=== PATIENT | male | born 1955 | race Caucasian/White ===

== ENCOUNTER 2019-12-27 13:56 | Emergency (ER) | payer OTHER ==
--- NOTE | 2019-12-27 13:59 | PDOC ---
Rapid Medical Evaluation Time Seen by Provider: 12/27/19 13:58 Medical Evaluation: 12/27/19 13:59 I have performed a brief in-person evaluation of this patient. The patient presents with a chief complaint of:BG in the 500s today w/ lethargy. Noncompliant w/ insulin per daughter Pertinent physical exam findings:stable I have ordered the following:labs The patient will proceed to the ED for further evaluation. Discharge Disposition - Diagnosis Hyperglycemia - Referrals - Patient Instructions - Post Discharge Activity
[2019-12-27] MEDS ORDERED: SODIUM CHLORIDE 0.9% 500 ML INFUS.BAG IV ONE (14:24)
[2019-12-27 16:26] LABS: BASO % 0.5 % (0-2.0); EOS % 0.1 % (0-4.5); HEMATOCRIT 38.6 % (35.4-49); HEMOGLOBIN 12.5 GM/dL (11.7-16.9); MCH 25.7 pg (25.7-33.7); MCHC 32.3 g/dl (32.0-35.9); MEAN CELL VOLUME 79.6 fl (80-96); MEAN PLT VOLUME 10.9 fl (7.5-11.1); NEUT % 86.4 % (42.8-82.8); PLATELET COUNT 238 K/MM3 (134-434); RBC 4.85 M/mm3 (4.00-5.60); RDW 14.3 % (11.9-15.9); WHITE BLOOD COUNT 8.5 K/mm3 (4.0-10.0)
[2019-12-27 16:56] LABS: ALBUMIN 2.4 g/dl (3.4-5.0); ALK PHOS 122 U/L (45-117); ANION GAP 16 MMOL/L (8-16); BILIRUBIN,TOTAL 0.6 mg/dL (0.2-1); BLOOD UREA NITROGEN 59.2 mg/dL (7-18); CALCIUM 8.8 mg/dL (8.5-10.1); CHLORIDE 90 mmol/L (98-107); CO2 21 mmol/L (21-32); CREATININE 3.8 mg/dL (0.55-1.3); SGOT/AST 21 U/L (15-37); SGPT/ALT 16 U/L (13-61); SODIUM 126 mmol/L (136-145)
--- NOTE | 2019-12-27 17:06 | PDOC ---
Documentation entered by Leslie Kruse SCRIBE, acting as scribe for Bucky Willett MD. Bucky Willett MD: This documentation has been prepared by the Uriah mcmahon Adrianna, SCRIBE, under my direction and personally reviewed by me in its entirety. I confirm that the documentation accurately reflects all work, treatment, procedures, and medical decision making performed by me. Attending Attestation - Resident Resident Name: North Perez - ED Attending Attestation I have performed the following: I have examined & evaluated the patient, The case was reviewed & discussed with the resident, I agree w/resident's findings & plan, Exceptions are as noted - HPI HPI: The patient is a 64 year old male, with a significant PMH of IDDM, HTN, HLD, who presents with elevated blood glucose. Patients BG was in the 500s today. His daughter notes he has not had insulin for the past 3 days (traveling & visiting family), but took a dose last night and one this morning. He endorses lethargy, but otherwise denies any other complaints. Allergies: NKA, NKDA - Physicial Exam PE: Agree with resident exam - Medical Decision Making 12/27/19 17:11 64 M with hyperglycemia 2/2 med noncompliance. Will check labs, r/o DKA. - Labs - IVF, insulin PRN Discharge - Discharge Information Problems reviewed: Yes Clinical Impression/Diagnosis: Hyperglycemia, DKA (diabetic ketoacidoses) Condition: Improved - Follow up/Referral - Patient Discharge Instructions - Post Discharge Activity
[2019-12-27] MEDS ORDERED: SODIUM CHLORIDE 1,000 ML IV STA (17:26)
[2019-12-27] MEDS ORDERED: INSULIN REGULAR HUMAN 100 UNITS/ML *VIAL IVPUSH ONE (17:26)
[2019-12-27 17:37] LABS: GLUCOSE,RANDOM 423 mg/dL (74-106)
--- NOTE | 2019-12-27 17:42 | PDOC ---
History of Present Illness - General Chief Complaint: Blood Sugar Problem Stated Complaint: BLOOD SUGAR PROBLEM Time Seen by Provider: 12/27/19 13:58 History Source: Patient Exam Limitations: No Limitations - History of Present Illness Initial Comments: 12/27/19 17:36 64 yo male pmh HTN and IDDM presents to the ED for elevated glucose. Pt states he lives in [place], visiting family in the [place] for the last 3 days. Patient forgot to bring his insulin, only took last nights dose and this mornings dose (long acting insulin, does not know the name of it). Pt reports increasing blood sugar, over 600 at home yesterday, otherwise has no medical complaints. Denies CP, SOB, abdominal pain, F/C/N/V, changes in bowel or bladder habits. Past History - Medical History Allergies/Adverse Reactions: Allergies Allergy/AdvReac Type Severity Reaction Status Date / Time No Known Allergies Allergy Verified 12/27/19 14:04 Home Medications: Ambulatory Orders Unobtainable 12/27/19 COPD: No Diabetes: Yes (IDDM) HTN: Yes - Psycho-Social/Smoking History Smoking History: Never smoked - Substance Abuse Hx (Audit-C & DAST Scrn) How often the patient has a drink containing alcohol: Never Score: In Men: 4 or > Positive; In Women: 3 or > Positive: 0 Screen Result (Pos requires Nsg. Audit-10AR): Negative Review of Systems - Review of Systems Constitutional: Yes: Symptoms Reported HEENTM: Yes: Symptoms Reported Respiratory: Yes: Symptoms reported Cardiac (ROS): Yes: Symptoms Reported ABD/GI: Yes: Symptoms Reported : Yes: Symptoms Reported Musculoskeletal: Yes: Symptoms Reported Integumentary: Yes: Symptoms Reported Neurological: Yes: Symptoms reported *Physical Exam - Vital Signs Last Vital Signs Temp Pulse Resp BP Pulse Ox 98 F 65 18 107/53 L 98 12/27/19 14:02 12/27/19 14:02 12/27/19 14:02 12/27/19 14:02 12/27/19 14:02 - Physical Exam General Appearance: Yes: Nourished, Appropriately Dressed. No: Apparent Distress HEENT: positive: EOMI Neck: positive: Supple. negative: Carotid bruit Respiratory/Chest: positive: Lungs Clear, Normal Breath Sounds. negative: Respiratory Distress, Accessory Muscle Use, Rapid RR, Crackles, Rales, Rhonchi, Stridor, Wheezing Cardiovascular: positive: Regular Rhythm, Regular Rate, S1, S2. negative: Edema, JVD, Murmur Vascular Pulses: Dorsalis-Pedis (R): 4+, Doralis-Pedis (L): 4+ Gastrointestinal/Abdominal: positive: Flat, Soft. negative: Pulsatile Mass, Protuberent, Distended, Guarding, Rebound, Tenderness Musculoskeletal: negative: CVA Tenderness Extremity: positive: Normal Capillary Refill, Normal Inspection, Normal Range of Motion Integumentary: positive: Normal Color, Dry, Warm Neurologic: positive: Fully Oriented, Alert, Normal Mood/Affect, Normal Response ED Treatment Course - LABORATORY CBC & Chemistry Diagram: 12/27/19 15:45 12/27/19 15:15 - ADDITIONAL ORDERS Additional order review: Laboratory Results 12/27/19 12/27/19 12/27/19 15:17 15:15 15:15 Sodium 126 L Potassium 5.0 Chloride 90 L Carbon Dioxide 21 Anion Gap 16 BUN 59.2 H Creatinine 3.8 H Est GFR (CKD-EPI)AfAm 18.02 Est GFR (CKD-EPI)NonAf 15.55 POC Glucometer 420 Calcium 8.8 Total Bilirubin 0.6 AST 21 ALT 16 Alkaline Phosphatase 122 H Creatine Kinase 195 Creatine Kinase Index 1.0 CK-MB (CK-2) 2.1 Troponin I < 0.02 Total Protein 7.0 Albumin 2.4 L Beta-Hydroxybutyrate 11.5 H 12/27/19 12/27/19 15:45 15:17 RBC 4.85 MCV 79.6 L MCHC 32.3 RDW 14.3 MPV 10.9 Neutrophils % 86.4 H Lymphocytes % 7.0 L Monocytes % 6.0 Eosinophils % 0.1 Basophils % 0.5 POC Glucometer 420 - Medications Given in the ED: ED Medications Discontinued Medications Generic Name Dose Route Start Last Admin Trade Name Freq PRN Reason Stop Dose Admin Sodium Chloride 1,000 ml 12/27/19 14:24 12/27/19 15:46 Normal Saline - IV 12/27/19 14:25 1,000 ml ONCE ONE Administration Medical Decision Making - Medical Decision Making 12/27/19 17:59 64 yo male pmh HTN and IDDM presents to the ED for elevated glucose. Pt states he lives in [place], visiting family in the [place] for the last 3 days. Patient forgot to bring his insulin, only took last nights dose and this mornings dose (long acting insulin, does not know the name of it). Pt reports increasing blood sugar, over 600 at home yesterday, otherwise has no medical complaints. Denies CP, SOB, abdominal pain, F/C/N/V, changes in bowel or bladder habits. vitals stable Due to elevated BS, DKS suspected, labs sent and fluids started Labs show BS 423, beta HB 11.5, anion gap 16 Creatin noted 3.8 and Na corrected 134, no prior labs or notes to compare ordered 2nd 1000 ml NS Pt admitted for DKA Discharge - Discharge Information Problems reviewed: Yes Clinical Impression/Diagnosis: Hyperglycemia, DKA (diabetic ketoacidoses) - Admission Yes - Follow up/Referral - Patient Discharge Instructions - Post Discharge Activity
[2019-12-27] MEDS ORDERED: INSULIN REGULAR HUMAN 100 UNITS/ML *VIAL ONE (18:13)
[2019-12-27] MEDS ORDERED: INSULIN (LEVEMIR) 100 UNITS/ML UNITS SQ ONE ×3 (18:32→20:26)
[2019-12-27 18:37] LABS: VENOUS BASE EXCESS -4.2 mmol/L (-2-2); VENOUS O2 SATURATION 56.2 % (70-80); VENOUS PCO2 50.6 mmHg (38-52); VENOUS PH 7.275 (7.310-7.410)
--- NOTE | 2019-12-27 18:50 | HP ---
CHIEF COMPLAINT: elevated blood sugar PCP:Sees doctors in [facility] HISTORY OF PRESENT ILLNESS: Patient is a 64 year old male with past medical history of insulin-dependent DM, HTN, HLD, CKD, presented to the ED after noting BGMs to be >500 at home today. Patient is from [place], and came here to visit family. Patient forgot his insulin, and has not been taking it the past 3 days. He takes Insulin 20u in the morning and 20u at night. After checking his BGM to be at the 600s, patient was able to get Insulin and took it last night and this morning. Glucose remained to be elevated and so they came to the ED. Patient denies any fevers, chills ,headache, dizziness, chest pain, SOB, abdominal pain, diarrhea, urinary symptoms. ER course was notable for: (1)Insulin regular 5 units given (2)Na 126, Cl 90, HCO3 21, Glu 423, Anion gap 15 (corrected), Beta hydroxybutyrate 11.5 (3)BUN/Cr 59/3.8 Recent Travel:comes from [place] PAST MEDICAL HISTORY: DM HTN HLD PAST SURGICAL HISTORY: None Social History: Smoking:denies Alcohol:denies Drugs: denies Allergies No Known Allergies Allergy (Verified 12/27/19 14:04) HOME MEDICATIONS: Home Medications Medication Instructions Recorded Unobtainable 12/27/19 REVIEW OF SYSTEMS CONSTITUTIONAL: Absent: fever, chills, diaphoresis, generalized weakness, malaise, loss of appetite, weight change HEENT: Absent: rhinorrhea, nasal congestion, throat pain, throat swelling, difficulty swallowing, mouth swelling, ear pain, eye pain, visual changes CARDIOVASCULAR: Absent: chest pain, syncope, palpitations, irregular heart rate, lightheadedness, peripheral edema RESPIRATORY: Absent: cough, shortness of breath, dyspnea with exertion, orthopnea, wheezing, stridor, hemoptysis GASTROINTESTINAL: Absent: abdominal pain, abdominal distension, nausea, vomiting, diarrhea, constipation, melena, hematochezia GENITOURINARY: Absent: dysuria, frequency, urgency, hesitancy, hematuria, flank pain, genital pain MUSCULOSKELETAL: Absent: myalgia, arthralgia, joint swelling, back pain, neck pain SKIN: Absent: rash, itching, pallor HEMATOLOGIC/IMMUNOLOGIC: Absent: easy bleeding, easy bruising, lymphadenopathy, frequent infections ENDOCRINE: Absent: unexplained weight gain, unexplained weight loss, heat intolerance, cold intolerance NEUROLOGIC: Absent: headache, focal weakness or paresthesias, dizziness, unsteady gait, seizure, mental status changes, bladder or bowel incontinence PSYCHIATRIC: Absent: anxiety, depression, suicidal or homicidal ideation, hallucinations. PHYSICAL EXAMINATION Vital Signs - 24 hr 12/27/19 14:02 Temperature 98 F Pulse Rate 65 Respiratory 18 Rate Blood Pressure 107/53 L O2 Sat by Pulse 98 Oximetry (%) GENERAL: Awake, alert, and fully oriented, in no acute distress. HEAD: Normal with no signs of trauma. EYES: PERRLA, EOMI, sclera anicteric, conjunctiva clear. EARS, NOSE, THROAT: Dry mucous membranes. NECK: Normal range of motion, supple LUNGS: Breath sounds equal, clear to auscultation bilaterally. HEART: Regular rate and rhythm, normal S1 and S2 ABDOMEN: Soft, nontender, not distended, normoactive bowel sounds MUSCULOSKELETAL: Normal range of motion at all joints. LOWER EXTREMITIES: 2+ pulses, warm, well-perfused. No peripheral edema. NEUROLOGICAL: Cranial nerves II-XII intact. Normal speech PSYCHIATRIC: Cooperative. Good eye contact. SKIN: Warm, dry, normal turgor Laboratory Results - last 24 hr 12/27/19 12/27/19 12/27/19 15:15 15:15 15:17 WBC RBC Hgb Hct MCV MCH MCHC RDW Plt Count MPV Absolute Neuts (auto) Neutrophils % Lymphocytes % Monocytes % Eosinophils % Basophils % Nucleated RBC % Sodium 126 L Potassium 5.0 Chloride 90 L Carbon Dioxide 21 Anion Gap 16 BUN 59.2 H Creatinine 3.8 H Est GFR (CKD-EPI)AfAm 18.02 Est GFR (CKD-EPI)NonAf 15.55 POC Glucometer 420 Random Glucose 423 H* Calcium 8.8 Total Bilirubin 0.6 AST 21 ALT 16 Alkaline Phosphatase 122 H Creatine Kinase 195 Creatine Kinase Index 1.0 CK-MB (CK-2) 2.1 Troponin I < 0.02 Total Protein 7.0 Albumin 2.4 L Beta-Hydroxybutyrate 11.5 H 12/27/19 15:45 WBC 8.5 RBC 4.85 Hgb 12.5 Hct 38.6 MCV 79.6 L MCH 25.7 MCHC 32.3 RDW 14.3 Plt Count 238 MPV 10.9 Absolute Neuts (auto) 7.3 Neutrophils % 86.4 H Lymphocytes % 7.0 L Monocytes % 6.0 Eosinophils % 0.1 Basophils % 0.5 Nucleated RBC % 0 Sodium Potassium Chloride Carbon Dioxide Anion Gap BUN Creatinine Est GFR (CKD-EPI)AfAm Est GFR (CKD-EPI)NonAf POC Glucometer Random Glucose Calcium Total Bilirubin AST ALT Alkaline Phosphatase Creatine Kinase Creatine Kinase Index CK-MB (CK-2) Troponin I Total Protein Albumin Beta-Hydroxybutyrate ASSESSMENT/PLAN: Patient is a 64 year old male with past medical history of insulin-dependent DM, HTN, HLD, CKD, presented to the ED after noting BGMs to be >500 at home today. #Hyperglycemia, T2DM -minimally elevated anion gap, elevated B-hydroxybutyrate, less likely DKA since bicarb since normal -will order lactic acid (fluids already given) -BGM q2h -BMP q6h -Insulin slidiing scale implemented -on Lantus 20u bid at home -will resume Lantus 10u bid, with ISS and adjust as needed #JORDYN vs CKD -unclear baseline, but patient reported he has hx of CKD -will hold Losartan for now -on IVF -Renal/bladder US ordered -UA pending -will continue to monitor renal function #HTN -Continue home Amlodipine 10mg daily, Lopressor 100mg bid -Will hold losartan for now #HLD -Continue Lipitor 80mg sq daily #FEN -IV NS @100cc/hr -routine bmp monitoring -Diabetic diet #Prophylaxis -Heparin 5000u sq tid #Disposition -full code -tele obs Visit type - Emergency Visit Emergency Visit: Yes ED Registration Date: 12/27/19 Care time: The patient presented to the Emergency Department on the above date and was hospitalized for further evaluation of their emergent condition. - New Patient This patient is new to me today: Yes Date on this admission: 12/27/19 - Critical Care Critical Care patient: No ATTENDING PHYSICIAN STATEMENT I saw and evaluated the patient. I reviewed the resident's note and discussed the case with the resident. I agree with the resident's findings and plan as documented. SUBJECTIVE: OBJECTIVE: ASSESSMENT AND PLAN:
[2019-12-27 18:52] LABS: EPI CELLS 24 /uL (0-25.1); HYALINE CASTS 3 /uL (0-3.1); URINE APPEARANCE CLOUDY; URINE BACTERIA 4 /uL (0-1359); URINE BILIRUBIN NEGATIVE (NEGATIVE); URINE COLOR YELLOW; URINE GLUCOSE (UA) 3+ (NEGATIVE); URINE KETONE TRACE (NEGATIVE); URINE LEUK ESTERASE NEGATIVE (NEGATIVE); URINE NITRITE NEGATIVE (NEGATIVE); URINE PROTEIN 2+ (NEGATIVE); URINE RBC 7 /uL (0-23.9); URINE WBC 48 /uL (0-25.8)
[2019-12-27] MEDS ORDERED: ATORVASTATIN CA 80 MG TABLET (FP) PO SCH (22:00)
[2019-12-27] MEDS ORDERED: PATIENT'S OWN MEDICATION (NON-FORMULARY) (Insulin Glargine,Hum.Rec.Anlog [Lantus Solostar] SQ SCH (22:00)
[2019-12-27 22:24] LABS: BLOOD UREA NITROGEN 54.6 mg/dL (7-18); CALCIUM 8.3 mg/dL (8.5-10.1); CREATININE 3.2 mg/dL (0.55-1.3); POTASSIUM 4.6 mmol/L (3.5-5.1)
[2019-12-27] MEDS ORDERED: ATORVASTATIN CA 80 MG TABLET (FP) ONE (22:43)
[2019-12-27] MEDS ORDERED: HEPARIN NA (PORCINE) 5,000 UNITS/ML 1ML VIAL ONE (22:44)
[2019-12-27] MEDS: HEPARIN NA (PORCINE) 5,000 UNITS/ML 1ML VIAL SQ SCH (23:07)
[2019-12-28] MEDS: INSULIN SLIDING SCALE (NOVOLOG) 1 VIAL SQ SCH ×3 (01:10→11:54)
[2019-12-28] MEDS ORDERED: METOPROLOL TARTRATE 50 MG TABLET (FP) ONE (02:18)
[2019-12-28] MEDS: SODIUM CHLORIDE 1,000 ML IV SCH ×2 (02:35→09:27)
[2019-12-28] MEDS: METOPROLOL TARTRATE 50 MG TABLET (FP) PO SCH ×2 (02:35→09:26)
[2019-12-28 03:24] LABS: BLOOD UREA NITROGEN 51.9 mg/dL (7-18); CALCIUM 8.5 mg/dL (8.5-10.1); POTASSIUM 4.2 mmol/L (3.5-5.1)
[2019-12-28 04:12] VITALS: BMI 26.6
[2019-12-28] MEDS: HEPARIN NA (PORCINE) 5,000 UNITS/ML 1ML VIAL SQ SCH (06:20)
[2019-12-28] MEDS ORDERED: INSULIN (LEVEMIR) 100 UNITS/ML UNITS SQ SCH ×3 (07:00→07:36)
--- NOTE | 2019-12-28 07:59 | PN ---
Teaching Attending Note Name of Resident: Angle Davis ATTENDING PHYSICIAN STATEMENT I saw and evaluated the patient. I reviewed the resident's note and discussed the case with the resident. I agree with the resident's findings and plan as documented. SUBJECTIVE: Patient denies any complain OBJECTIVE: Vital Signs Temperature 97.6 F 12/28/19 04:07 Pulse Rate 83 12/28/19 04:07 Respiratory Rate 20 12/28/19 04:07 Blood Pressure 156/89 12/28/19 04:07 O2 Sat by Pulse Oximetry (%) 97 12/28/19 04:15 General: Elderly man, comfortable, not in distress HEENT mucous membranes moist, no anemia, no jaundice, PERRLA, no nystagmus Neck: No JVD, supple, no bruit, thyroid palpably normal, normal carotid pulsations. Chest: Nontender, clear to auscultation bilaterally/bilateral wheezing/bilateral basal rales. CVS: S1-S2 regular/irregular no murmur/gallop/rub Abdomen: Nondistended, soft, bowel sounds present. Extremities: No edema., No Calf tenderness, pulses present [employer]: AO X3 , no gross motor sensory deficit CBC, BMP 12/28/19 06:36 12/28/19 06:36 Hemoglobin A1c 13.6 Active Medications Amlodipine Besylate (Norvasc -) 10 mg PO DAILY [facility] Atorvastatin Calcium (Lipitor -) 80 mg PO HS [facility] Last Admin: 12/27/19 23:07 Dose: 80 mg Documented by: Heparin Sodium (Porcine) (Heparin -) 5,000 unit SQ TID [facility] Last Admin: 12/28/19 06:20 Dose: 5,000 unit Documented by: Sodium Chloride (Normal Saline -) 1,000 mls @ 100 mls/hr IV ASDIR [facility] Last Admin: 12/28/19 02:35 Dose: 100 mls/hr Documented by: Insulin Aspart (Novolog Vial Sliding Scale -) 1 vial SQ ACHS [facility]; Protocol Last Admin: 12/28/19 06:21 Dose: 2 unit Documented by: Insulin Detemir (Levemir Vial) 20 units SQ BID@0700,2200 [facility] Metoprolol Tartrate (Lopressor -) 100 mg PO BID [facility] Last Admin: 12/28/19 02:35 Dose: 100 mg Documented by: ASSESSMENT AND PLAN:64 year old male with past medical history of insulin- dependent T2DM, HTN, HLD, CKD4, presented to the ED after noting BGMs to be >500 at home today patient missed insulin for 2 days initial clinical presentation of DKA now closed AG Active issues: 1. Diabetes ketoacidosis: Patient is a known case of type 2 diabetes mellitus on insulin, noncompliant presented with severe hypoglycemia with elevated anion gap, beta hydroxybutyrate and random plasma glucose more than 600 ABG shows metabolic acidosis, consistent with DKA received IV hydration gap closed able to tolerate p.o. resumed home dose of insulin patient needs education for glycemic control as hemoglobin A1c 13.6 , patient is able to tolerate p.o. and gap is close last fingersticks are less than 200 can be discharged home. 2. JORDYN on CKD: Due to dehydration baseline patient has CKD stage III will hold lisinopril can be resumed as an outpatient once creatinine level is stabilized. 3. Hypertension: Well-controlled continue home medications 4. Dehydration resolved 5. Ultrasound shows chronic medical kidney disease, no hydronephrosis mild urinary retention will add Flomax 6. Hypercholesteremia:; Continue statin at outpatient dose
[2019-12-28 08:08] LABS: BASO % 0.5 % (0-2.0); EOS % 0.1 % (0-4.5); HEMATOCRIT 38.3 % (35.4-49); HEMOGLOBIN 12.2 GM/dL (11.7-16.9); LYMPH % 7.9 % (8-40); MCH 25.2 pg (25.7-33.7); MCHC 31.8 g/dl (32.0-35.9); MEAN CELL VOLUME 79.3 fl (80-96); MEAN PLT VOLUME 10.6 fl (7.5-11.1); MONO % 5.7 % (3.8-10.2); NEUT % 85.8 % (42.8-82.8); PLATELET COUNT 203 K/MM3 (134-434); RBC 4.83 M/mm3 (4.00-5.60); RDW 14.4 % (11.9-15.9); WHITE BLOOD COUNT 7.6 K/mm3 (4.0-10.0)
[2019-12-28 08:35] LABS: ALBUMIN 2.2 g/dl (3.4-5.0); BILIRUBIN,TOTAL 0.3 mg/dL (0.2-1); BLOOD UREA NITROGEN 48.4 mg/dL (7-18); CALCIUM 8.9 mg/dL (8.5-10.1); CREATININE 2.6 mg/dL (0.55-1.3); MAGNESIUM 2.4 mg/dL (1.8-2.4); PHOSPHOROUS 2.8 mg/dL (2.5-4.9); POTASSIUM 4.6 mmol/L (3.5-5.1); TOT PROT 6.8 g/dl (6.4-8.2)
[2019-12-28 08:51] VITALS: BP 140/81; PULSE 80; TEMP 98.9
[2019-12-28] MEDS ORDERED: amLODIPine BESYLATE 10 MG TABLET (FP) PO SCH (10:00)
--- NOTE | 2019-12-28 11:51 | EKG ---
Test Reason : Blood Pressure : / mmHG Vent. Rate : 095 BPM Atrial Rate : 095 BPM P-R Int : 124 ms QRS Dur : 092 ms QT Int : 332 ms P-R-T Axes : 052 005 000 degrees QTc Int : 417 ms NORMAL SINUS RHYTHM POSSIBLE LEFT ATRIAL ENLARGEMENT LEFT VENTRICULAR HYPERTROPHY WITH REPOLARIZATION ABNORMALITY POSSIBLE INFERIOR INFARCT , AGE UNDETERMINED ABNORMAL ECG NO PREVIOUS ECGS AVAILABLE Confirmed by KALEB JAMES MD ([id number]) on 12/28/2019 11:51:36 AM Referred By: Confirmed By:KALEB JAMES MD
--- NOTE | 2019-12-28 16:35 | DS ---
Physical Exam: SUBJECTIVE: Patient seen and examined. No acute events overnight OBJECTIVE: Vital Signs Temperature 98.9 F 12/28/19 08:50 Pulse Rate 80 12/28/19 08:50 Respiratory Rate 18 12/28/19 09:00 Blood Pressure 140/81 12/28/19 08:50 O2 Sat by Pulse Oximetry (%) 95 12/28/19 09:00 PHYSICAL EXAM GENERAL: Awake, alert, and fully oriented, in no acute distress. HEAD: Normal with no signs of trauma. EYES: PERRLA, EOMI, sclera anicteric, conjunctiva clear. EARS, NOSE, THROAT: Dry mucous membranes. NECK: Normal range of motion, supple LUNGS: Breath sounds equal, clear to auscultation bilaterally. HEART: Regular rate and rhythm, normal S1 and S2 ABDOMEN: Soft, nontender, not distended, normoactive bowel sounds MUSCULOSKELETAL: Normal range of motion at all joints. LOWER EXTREMITIES: 2+ pulses, warm, well-perfused. No peripheral edema. NEUROLOGICAL: Cranial nerves II-XII intact. Normal speech PSYCHIATRIC: Cooperative. Good eye contact. SKIN: Warm, dry, normal turgor LABS Laboratory Results - last 24 hr 12/27/19 12/27/19 12/27/19 15:15 15:15 15:45 WBC 8.5 RBC 4.85 Hgb 12.5 Hct 38.6 MCV 79.6 L MCH 25.7 MCHC 32.3 RDW 14.3 Plt Count 238 MPV 10.9 Absolute Neuts (auto) 7.3 Neutrophils % 86.4 H Lymphocytes % 7.0 L Monocytes % 6.0 Eosinophils % 0.1 Basophils % 0.5 Nucleated RBC % 0 VBG pH POC VBG pCO2 POC VBG pO2 VBG HCO3 VBG O2 Sat (Jennyfer) VBG Base Excess Sodium 126 L Potassium 5.0 Chloride 90 L Carbon Dioxide 21 Anion Gap 16 BUN 59.2 H Creatinine 3.8 H Est GFR (CKD-EPI)AfAm 18.02 Est GFR (CKD-EPI)NonAf 15.55 POC Glucometer Random Glucose 423 H* Hemoglobin A1c % Lactic Acid Calcium 8.8 Phosphorus Magnesium Total Bilirubin 0.6 AST 21 ALT 16 Alkaline Phosphatase 122 H Creatine Kinase 195 Creatine Kinase Index 1.0 CK-MB (CK-2) 2.1 Troponin I < 0.02 Total Protein 7.0 Albumin 2.4 L Beta-Hydroxybutyrate 11.5 H TSH Urine Color Urine Appearance Urine pH Ur Specific [place] Urine Protein Urine Glucose (UA) Urine Ketones Urine Blood Urine Nitrite Urine Bilirubin Urine Urobilinogen Ur Leukocyte Esterase Urine WBC (Auto) Urine RBC (Auto) Urine Casts (Auto) U Pathogenic Cast Auto U Epithel Cells (Auto) Urine Bacteria (Auto) Urine Osmolality Ur Random Creatinine Ur Random Sodium Ur Random Potassium Ur Random Chloride 12/27/19 12/27/19 12/27/19 18:05 18:36 18:36 WBC RBC Hgb Hct MCV MCH MCHC RDW Plt Count MPV Absolute Neuts (auto) Neutrophils % Lymphocytes % Monocytes % Eosinophils % Basophils % Nucleated RBC % VBG pH 7.275 L POC VBG pCO2 50.6 POC VBG pO2 33.5 VBG HCO3 23.0 VBG O2 Sat (Jennyfer) 56.2 L VBG Base Excess -4.2 L Sodium Potassium Chloride Carbon Dioxide Anion Gap BUN Creatinine Est GFR (CKD-EPI)AfAm Est GFR (CKD-EPI)NonAf POC Glucometer Random Glucose Hemoglobin A1c % Lactic Acid Calcium Phosphorus Magnesium Total Bilirubin AST ALT Alkaline Phosphatase Creatine Kinase Creatine Kinase Index CK-MB (CK-2) Troponin I Total Protein Albumin Beta-Hydroxybutyrate TSH Urine Color Yellow Urine Appearance Cloudy Urine pH 5.0 Ur Specific [place] 1.016 Urine Protein 2+ H Urine Glucose (UA) 3+ H Urine Ketones Trace H Urine Blood Negative Urine Nitrite Negative Urine Bilirubin Negative Urine Urobilinogen 1.0 Ur Leukocyte Esterase Negative Urine WBC (Auto) 48 Urine RBC (Auto) 7 Urine Casts (Auto) 3 U Pathogenic Cast Auto Few granular U Epithel Cells (Auto) 24 Urine Bacteria (Auto) 4 Urine Osmolality 333 Ur Random Creatinine 149.0 Ur Random Sodium 21 L Ur Random Potassium 33.0 Ur Random Chloride < 11 L 12/27/19 12/27/19 12/27/19 18:59 20:14 21:35 WBC RBC Hgb Hct MCV MCH MCHC RDW Plt Count MPV Absolute Neuts (auto) Neutrophils % Lymphocytes % Monocytes % Eosinophils % Basophils % Nucleated RBC % VBG pH POC VBG pCO2 POC VBG pO2 VBG HCO3 VBG O2 Sat (Jennyfer) VBG Base Excess Sodium 130 L Potassium 4.6 Chloride 97 L Carbon Dioxide 20 L Anion Gap 13 BUN 54.6 H Creatinine 3.2 H Est GFR (CKD-EPI)AfAm 22.18 Est GFR (CKD-EPI)NonAf 19.13 POC Glucometer 274 226 Random Glucose 335 H Hemoglobin A1c % Lactic Acid Calcium 8.3 L Phosphorus Magnesium Total Bilirubin AST ALT Alkaline Phosphatase Creatine Kinase Creatine Kinase Index CK-MB (CK-2) Troponin I Total Protein Albumin Beta-Hydroxybutyrate TSH Urine Color Urine Appearance Urine pH Ur Specific [place] Urine Protein Urine Glucose (UA) Urine Ketones Urine Blood Urine Nitrite Urine Bilirubin Urine Urobilinogen Ur Leukocyte Esterase Urine WBC (Auto) Urine RBC (Auto) Urine Casts (Auto) U Pathogenic Cast Auto U Epithel Cells (Auto) Urine Bacteria (Auto) Urine Osmolality Ur Random Creatinine Ur Random Sodium Ur Random Potassium Ur Random Chloride 12/28/19 12/28/19 12/28/19 00:50 02:45 02:45 WBC RBC Hgb Hct MCV MCH MCHC RDW Plt Count MPV Absolute Neuts (auto) Neutrophils % Lymphocytes % Monocytes % Eosinophils % Basophils % Nucleated RBC % VBG pH POC VBG pCO2 POC VBG pO2 VBG HCO3 VBG O2 Sat (Jennyfer) VBG Base Excess Sodium 131 L Potassium 4.2 Chloride 99 Carbon Dioxide 21 Anion Gap 12 BUN 51.9 H Creatinine 3.0 H Est GFR (CKD-EPI)AfAm 23.98 Est GFR (CKD-EPI)NonAf 20.69 POC Glucometer 450 Random Glucose 383 H Hemoglobin A1c % Lactic Acid 1.4 Calcium 8.5 Phosphorus Magnesium Total Bilirubin AST ALT Alkaline Phosphatase Creatine Kinase Creatine Kinase Index CK-MB (CK-2) Troponin I Total Protein Albumin Beta-Hydroxybutyrate TSH Urine Color Urine Appearance Urine pH Ur Specific [place] Urine Protein Urine Glucose (UA) Urine Ketones Urine Blood Urine Nitrite Urine Bilirubin Urine Urobilinogen Ur Leukocyte Esterase Urine WBC (Auto) Urine RBC (Auto) Urine Casts (Auto) U Pathogenic Cast Auto U Epithel Cells (Auto) Urine Bacteria (Auto) Urine Osmolality Ur Random Creatinine Ur Random Sodium Ur Random Potassium Ur Random Chloride 12/28/19 12/28/19 12/28/19 03:54 06:36 06:36 WBC 7.6 RBC 4.83 Hgb 12.2 Hct 38.3 MCV 79.3 L MCH 25.2 L MCHC 31.8 L RDW 14.4 Plt Count 203 MPV 10.6 Absolute Neuts (auto) 6.6 Neutrophils % 85.8 H Lymphocytes % 7.9 L Monocytes % 5.7 Eosinophils % 0.1 Basophils % 0.5 Nucleated RBC % 0 VBG pH POC VBG pCO2 POC VBG pO2 VBG HCO3 VBG O2 Sat (Jennyfer) VBG Base Excess Sodium 134 L Potassium 4.6 Chloride 103 Carbon Dioxide 18 L Anion Gap 13 BUN 48.4 H Creatinine 2.6 H Est GFR (CKD-EPI)AfAm 28.51 Est GFR (CKD-EPI)NonAf 24.60 POC Glucometer 277 Random Glucose 192 H Hemoglobin A1c % Lactic Acid Calcium 8.9 Phosphorus 2.8 Magnesium 2.4 Total Bilirubin 0.3 AST 24 ALT 16 Alkaline Phosphatase 113 Creatine Kinase Creatine Kinase Index CK-MB (CK-2) Troponin I Total Protein 6.8 Albumin 2.2 L Beta-Hydroxybutyrate TSH 0.29 L Urine Color Urine Appearance Urine pH Ur Specific [place] Urine Protein Urine Glucose (UA) Urine Ketones Urine Blood Urine Nitrite Urine Bilirubin Urine Urobilinogen Ur Leukocyte Esterase Urine WBC (Auto) Urine RBC (Auto) Urine Casts (Auto) U Pathogenic Cast Auto U Epithel Cells (Auto) Urine Bacteria (Auto) Urine Osmolality Ur Random Creatinine Ur Random Sodium Ur Random Potassium Ur Random Chloride 12/28/19 12/28/19 12/28/19 06:36 08:03 11:41 WBC RBC Hgb Hct MCV MCH MCHC RDW Plt Count MPV Absolute Neuts (auto) Neutrophils % Lymphocytes % Monocytes % Eosinophils % Basophils % Nucleated RBC % VBG pH POC VBG pCO2 POC VBG pO2 VBG HCO3 VBG O2 Sat (Jennyfer) VBG Base Excess Sodium Potassium Chloride Carbon Dioxide Anion Gap BUN Creatinine Est GFR (CKD-EPI)AfAm Est GFR (CKD-EPI)NonAf POC Glucometer 136 145 Random Glucose Hemoglobin A1c % 13.8 H Lactic Acid Calcium Phosphorus Magnesium Total Bilirubin AST ALT Alkaline Phosphatase Creatine Kinase Creatine Kinase Index CK-MB (CK-2) Troponin I Total Protein Albumin Beta-Hydroxybutyrate TSH Urine Color Urine Appearance Urine pH Ur Specific [place] Urine Protein Urine Glucose (UA) Urine Ketones Urine Blood Urine Nitrite Urine Bilirubin Urine Urobilinogen Ur Leukocyte Esterase Urine WBC (Auto) Urine RBC (Auto) Urine Casts (Auto) U Pathogenic Cast Auto U Epithel Cells (Auto) Urine Bacteria (Auto) Urine Osmolality Ur Random Creatinine Ur Random Sodium Ur Random Potassium Ur Random Chloride HOSPITAL COURSE: Date of Admission:12/27/19 Date of Discharge: 12/28/19 Patient is a 64 year old male with past medical history of insulin-dependent DM, HTN, HLD, CKD, presented to the ED after noting BGMs to be >500 at home today. #Hyperglycemia, T2DM -minimally elevated anion gap, elevated B-hydroxybutyrate, less likely DKA since bicarb since normal -Insulin slidiing scale implemented -on Lantus 20u bid at home -will resume Lantus 10u bid, with ISS and adjust as needed #JORDYN vs CKD -improved -will hold Losartan for now, advise follow up with PCP upon discharge -on IVF -Renal/bladder US consistent with chronic renal disease #HTN -Continue home Amlodipine 10mg daily, Lopressor 100mg bid -Will hold losartan for now Minutes to complete discharge: 36 Discharge Summary Problems reviewed: Yes Reason For Visit: DIABETIC KETOACIDOSIS Condition: Improved - Instructions Diet, Activity, Other Instructions: Your visit You were admitted in the hospital because you had high blood sugars. Your sugars improved with additional doses of insulin. It is important that you take your insulin regularly as prescribed by your doctor. Your kidney function was also noted to be abnormal. Your Losartan was placed on hold and your kidney function improved. Please stop taking the Losartan until you follow up with your primary care doctor. Medications Please continue taking your home medications as prescribed. Follow up Please follow up with your primary care doctor in 1-2 weeks. Additional info Please call 911 or go to the ED if with any worsening fever, chills ,headache, dizziness, chest pain, shortness of breath, belly pain, diarrhea or any new concerns noted. Disposition: HOME - Home Medications Comprehensive Discharge Medication List: Ambulatory Orders Amlodipine Besylate [Norvasc -] 10 mg PO DAILY 12/27/19 Atorvastatin Ca [Lipitor] 80 mg PO HS 12/27/19 Insulin Glargine,Hum.rec.anlog [Lantus Solostar] 20 unit SQ BID 12/27/19 Insulin Lispro [Humalog] 12 unit SQ HS 12/27/19 Insulin Lispro [Humalog] 12 units SQ ACBK 12/27/19 Metoprolol Tartrate [Lopressor] 100 mg PO BID 12/27/19 This patient is new to me today: No Emergency Visit: Yes ED Registration Date: 12/27/19 Care time: The patient presented to the Emergency Department on the above date and was hospitalized for further evaluation of their emergent condition. Critical Care patient: No - Discharge Referral Referred to [facility] No ATTENDING PHYSICIAN STATEMENT I saw and evaluated the patient. I reviewed the resident's note and discussed the case with the resident. I agree with the resident's findings and plan as documented. SUBJECTIVE: OBJECTIVE: ASSESSMENT AND PLAN:
[2019-12-29] MEDS ORDERED: TAMSULOSIN HCL 0.4 MG CAP PO SCH (08:30)
== END 2019-12-28 13:29 | disposition home or self-care (01) ==
LOC: JER 13:56 → J4S 18:09
PROVIDERS: ADMIT Internal Medicine; ATTEND Internal Medicine
PROC: 3E033GC Introduction of Other Therapeutic Substance into Peripheral Vein, Percutaneous Approach (ICD-10-PCS; principal; 2019-12-27)
PROC: 3E0337Z Introduction of Electrolytic and Water Balance Substance into Peripheral Vein, Percutaneous Approach (ICD-10-PCS; principal; 2019-12-27)
PROC: 3E023GC Introduction of Other Therapeutic Substance into Muscle, Percutaneous Approach (ICD-10-PCS; principal; 2019-12-27)
DX: E11.10 Type 2 diabetes mellitus with ketoacidosis without coma (principal)
CPT/HCPCS: 36415; 76775-TC; 76856-TC; 80048; 80053; 81003; 82010; 82436; 82550; 82553; 82565; 82803; 82962; 83036; 83605; 83735; 83935; 84100; 84133; 84300; 84443; 84484; 85025; 87086; 93005; 93010; 96361; 96372; 96374; 99285-25; G0378; J1644; U0003

== ENCOUNTER 2021-02-12 20:17 | Inpatient (IN) | payer OTHER ==
[2021-02-12 20:42] VITALS: BMI 28.9
[2021-02-12] MEDS ORDERED: DEXTROSE 50%-WATER - 25 GM/50 ML VIAL IVPUSH ONE (21:09)
[2021-02-12] MEDS ORDERED: DEXTROSE 50%-WATER 25 GM/50 ML DISP.SYRIN ONE (21:40)
[2021-02-12 21:46] LABS: ALBUMIN 3.1 g/dl (3.4-5.0); BLOOD UREA NITROGEN 76.7 mg/dL (7-18); CALCIUM 8.1 mg/dL (8.5-10.1)
[2021-02-12 21:50] LABS: BILIRUBIN,TOTAL 0.6 mg/dL (0.2-1); CREATININE 5.2 mg/dL (0.55-1.3); TOT PROT 6.4 g/dl (6.4-8.2)
[2021-02-12 22:08] LABS: BASO % 0.8 % (0-2.0); EOS % 1.1 % (0-4.5); HEMATOCRIT 27.1 % (35.4-49); HEMOGLOBIN 8.9 GM/dL (11.7-16.9); LYMPH % 11.5 % (8-40); MCH 26.6 pg (25.7-33.7); MCHC 32.8 g/dl (32.0-35.9); MEAN CELL VOLUME 81.1 fl (80-96); MEAN PLT VOLUME 9.3 fl (7.5-11.1); MONO % 7.4 % (3.8-10.2); NEUT % 79.2 % (42.8-82.8); PLATELET COUNT 301 10^3/uL (134-434); RBC 3.34 M/mm3 (4.00-5.60); RDW 14.3 % (11.9-15.9); WHITE BLOOD COUNT 6.7 K/mm3 (4.0-10.0)
[2021-02-12 22:37] LABS: CALCIUM 8.2 mg/dL (8.5-10.1)
[2021-02-12 22:38] LABS: BLOOD UREA NITROGEN 76.1 mg/dL (7-18)
[2021-02-12 22:41] LABS: CREATININE 5.4 mg/dL (0.55-1.3)
[2021-02-12 22:42] LABS: BILIRUBIN,TOTAL 0.5 mg/dL (0.2-1); TOT PROT 6.8 g/dl (6.4-8.2)
[2021-02-12 23:17] LABS: EPI CELLS 24 /uL (0-25.1); HYALINE CASTS 6 /uL (0-3.1); URINE APPEARANCE CLOUDY; URINE BACTERIA 3 /uL (0-1359); URINE BILIRUBIN NEGATIVE (NEGATIVE); URINE COLOR YELLOW; URINE GLUCOSE (UA) NEGATIVE (NEGATIVE); URINE KETONE NEGATIVE (NEGATIVE); URINE LEUK ESTERASE NEGATIVE (NEGATIVE); URINE NITRITE NEGATIVE (NEGATIVE); URINE PROTEIN 3+ (NEGATIVE); URINE RBC 4 /uL (0-23.9); URINE WBC 25 /uL (0-25.8)
[2021-02-13] MEDS ORDERED: FUROSEMIDE 40 MG/4 ML INJECTABLE VIAL IVPUSH ONE (00:25)
[2021-02-13] MEDS ORDERED: FUROSEMIDE 40 MG/4 ML INJECTABLE VIAL ONE (00:56)
[2021-02-13 08:00] LABS: HEMATOCRIT 26.5 % (35.4-49); HEMOGLOBIN 8.7 GM/dL (11.7-16.9); MCH 26.8 pg (25.7-33.7); MEAN CELL VOLUME 81.2 fl (80-96); MEAN PLT VOLUME 9.1 fl (7.5-11.1); PLATELET COUNT 270 10^3/uL (134-434); RBC 3.26 M/mm3 (4.00-5.60); RDW 14.6 % (11.9-15.9); WHITE BLOOD COUNT 6.5 K/mm3 (4.0-10.0)
[2021-02-13 08:13] LABS: CHLORIDE 105 mmol/L (98-107); SODIUM 138 mmol/L (136-145)
[2021-02-13 08:19] LABS: BLOOD UREA NITROGEN 79.3 mg/dL (7-18)
[2021-02-13 08:20] LABS: CALCIUM 8.5 mg/dL (8.5-10.1)
[2021-02-13 08:21] LABS: ALBUMIN 2.9 g/dl (3.4-5.0); ANION GAP 12 MMOL/L (8-16); CO2 21 mmol/L (21-32); MAGNESIUM 2.7 mg/dL (1.8-2.4)
[2021-02-13 08:23] LABS: SGPT/ALT 82 U/L (13-61)
[2021-02-13] MEDS: INSULIN SLIDING SCALE (NOVOLOG) 1 VIAL SQ SCH ×4 (08:23→21:38)
[2021-02-13 08:24] LABS: BILIRUBIN,TOTAL 0.5 mg/dL (0.2-1); CREATININE 5.4 mg/dL (0.55-1.3); IRON SERUM 32 ug/dL (50-175); PHOSPHOROUS 6.1 mg/dL (2.5-4.9); SGOT/AST 49 U/L (15-37); TOT PROT 6.2 g/dl (6.4-8.2)
[2021-02-13 08:25] LABS: ALK PHOS 134 U/L (45-117)
[2021-02-13 08:26] LABS: TOTAL IRON BINDING CAPACITY 272 ug/dL (250-450)
[2021-02-13 08:28] LABS: GLUCOSE,RANDOM 40 mg/dL (74-106)
[2021-02-13] MEDS ORDERED: DEXTROSE 50%-WATER - 25 GM/50 ML VIAL IVPUSH ONE (08:42)
[2021-02-13] MEDS: HEPARIN NA (PORCINE) 5,000 UNITS/ML 1ML VIAL SQ SCH ×3 (09:04→21:37)
[2021-02-13] MEDS: amLODIPine BESYLATE 5 MG TABLET (FP) PO SCH (11:23)
[2021-02-13] MEDS: SEVELAMER CARBONATE 800 MG TAB (FP) PO SCH ×2 (11:43→18:08)
[2021-02-13] MEDS ORDERED: CALCIUM ACETATE 667 MG CAPSULE (FP) PO SCH (12:00)
[2021-02-13] MEDS: FUROSEMIDE 40 MG/4 ML INJECTABLE VIAL IVPUSH SCH ×2 (13:19→16:07)
[2021-02-13] MEDS: ATORVASTATIN CA 80 MG TABLET (FP) PO SCH (21:37)
[2021-02-14] MEDS: HEPARIN NA (PORCINE) 5,000 UNITS/ML 1ML VIAL SQ SCH ×3 (06:14→21:40)
[2021-02-14] MEDS: INSULIN SLIDING SCALE (NOVOLOG) 1 VIAL SQ SCH ×4 (06:15→21:40)
[2021-02-14] MEDS: FUROSEMIDE 40 MG/4 ML INJECTABLE VIAL IVPUSH SCH ×2 (06:15→15:09)
[2021-02-14] MEDS: amLODIPine BESYLATE 5 MG TABLET (FP) PO SCH (09:27)
[2021-02-14] MEDS: SEVELAMER CARBONATE 800 MG TAB (FP) PO SCH ×3 (09:27→17:22)
[2021-02-14 09:33] LABS: HEMATOCRIT 28.6 % (35.4-49); HEMOGLOBIN 9.4 GM/dL (11.7-16.9); MCH 26.2 pg (25.7-33.7); MCHC 32.8 g/dl (32.0-35.9); MEAN CELL VOLUME 79.7 fl (80-96); MEAN PLT VOLUME 9.1 fl (7.5-11.1); PLATELET COUNT 295 10^3/uL (134-434); RBC 3.59 M/mm3 (4.00-5.60); RDW 14.7 % (11.9-15.9); WHITE BLOOD COUNT 6.3 K/mm3 (4.0-10.0)
[2021-02-14 10:22] LABS: CALCIUM 8.6 mg/dL (8.5-10.1)
[2021-02-14 10:24] LABS: BLOOD UREA NITROGEN 74.5 mg/dL (7-18)
[2021-02-14 10:30] LABS: CREATININE 5.4 mg/dL (0.55-1.3)
[2021-02-14] MEDS: ATORVASTATIN CA 80 MG TABLET (FP) PO SCH (21:39)
[2021-02-15] MEDS: FUROSEMIDE 40 MG/4 ML INJECTABLE VIAL IVPUSH SCH ×2 (06:20→16:24)
[2021-02-15] MEDS: HEPARIN NA (PORCINE) 5,000 UNITS/ML 1ML VIAL SQ SCH ×3 (06:20→21:47)
[2021-02-15] MEDS: INSULIN (LEVEMIR) 100 UNITS/ML UNITS SQ SCH (06:21)
[2021-02-15] MEDS: INSULIN SLIDING SCALE (NOVOLOG) 1 VIAL SQ SCH ×3 (06:22→16:28)
[2021-02-15 07:42] LABS: BASO % 0.4 % (0-2.0); EOS % 1.5 % (0-4.5); HEMATOCRIT 29.2 % (35.4-49); HEMOGLOBIN 9.7 GM/dL (11.7-16.9); MCH 26.9 pg (25.7-33.7); MEAN CELL VOLUME 81.3 fl (80-96); MEAN PLT VOLUME 9.2 fl (7.5-11.1); MONO % 9.2 % (3.8-10.2); NEUT % 73.9 % (42.8-82.8); PLATELET COUNT 326 10^3/uL (134-434); RDW 14.4 % (11.9-15.9); WHITE BLOOD COUNT 6.9 K/mm3 (4.0-10.0)
[2021-02-15 08:02] LABS: ALBUMIN 2.8 g/dl (3.4-5.0); CALCIUM 8.8 mg/dL (8.5-10.1)
[2021-02-15 08:03] LABS: MAGNESIUM 2.7 mg/dL (1.8-2.4)
[2021-02-15 08:06] LABS: BILIRUBIN,TOTAL 0.5 mg/dL (0.2-1); CREATININE 5.1 mg/dL (0.55-1.3); PHOSPHOROUS 4.2 mg/dL (2.5-4.9); TOT PROT 6.7 g/dl (6.4-8.2)
[2021-02-15] MEDS: SEVELAMER CARBONATE 800 MG TAB (FP) PO SCH ×3 (10:00→17:25)
[2021-02-15] MEDS: amLODIPine BESYLATE 5 MG TABLET (FP) PO SCH (10:01)
[2021-02-15] MEDS: ATORVASTATIN CA 80 MG TABLET (FP) PO SCH (21:47)
[2021-02-15] MEDS: METOPROLOL TARTRATE 50 MG TABLET (FP) PO SCH (21:47)
[2021-02-16] MEDS: INSULIN (LEVEMIR) 100 UNITS/ML UNITS SQ SCH (06:30)
[2021-02-16] MEDS: INSULIN SLIDING SCALE (NOVOLOG) 1 VIAL SQ SCH ×3 (06:30→16:50)
[2021-02-16] MEDS: FUROSEMIDE 40 MG/4 ML INJECTABLE VIAL IVPUSH SCH (06:32)
[2021-02-16] MEDS: HEPARIN NA (PORCINE) 5,000 UNITS/ML 1ML VIAL SQ SCH ×3 (06:32→21:53)
[2021-02-16 09:56] LABS: BASO % 1.2 % (0-2.0); EOS % 1.5 % (0-4.5); HEMATOCRIT 27.7 % (35.4-49); HEMOGLOBIN 9.2 GM/dL (11.7-16.9); LYMPH % 13.9 % (8-40); MCHC 33.4 g/dl (32.0-35.9); MEAN PLT VOLUME 9.4 fl (7.5-11.1); MONO % 12.2 % (3.8-10.2); NEUT % 71.2 % (42.8-82.8); PLATELET COUNT 278 10^3/uL (134-434); RBC 3.42 M/mm3 (4.00-5.60); RDW 14.4 % (11.9-15.9); WHITE BLOOD COUNT 6.2 K/mm3 (4.0-10.0)
[2021-02-16 10:16] LABS: ALBUMIN 2.6 g/dl (3.4-5.0); BLOOD UREA NITROGEN 64.9 mg/dL (7-18); CALCIUM 8.8 mg/dL (8.5-10.1); MAGNESIUM 2.3 mg/dL (1.8-2.4)
[2021-02-16 10:21] LABS: BILIRUBIN,TOTAL 0.4 mg/dL (0.2-1); CREATININE 4.8 mg/dL (0.55-1.3); TOT PROT 6.2 g/dl (6.4-8.2)
[2021-02-16] MEDS: SEVELAMER CARBONATE 800 MG TAB (FP) PO SCH ×3 (10:30→17:35)
[2021-02-16] MEDS: METOPROLOL TARTRATE 50 MG TABLET (FP) PO SCH ×2 (10:31→21:53)
[2021-02-16] MEDS: amLODIPine BESYLATE 5 MG TABLET (FP) PO SCH (10:31)
[2021-02-16] MEDS ORDERED: INSULIN SLIDING SCALE (NOVOLOG) 1 VIAL SQ ONE (10:57)
[2021-02-16] MEDS: FUROSEMIDE 40 MG TABLET (FP) PO SCH (13:42)
[2021-02-16] MEDS: ATORVASTATIN CA 80 MG TABLET (FP) PO SCH (21:53)
[2021-02-17] MEDS: INSULIN (LEVEMIR) 100 UNITS/ML UNITS SQ SCH (06:14)
[2021-02-17] MEDS: INSULIN SLIDING SCALE (NOVOLOG) 1 VIAL SQ SCH ×2 (06:14→11:39)
[2021-02-17] MEDS: FUROSEMIDE 40 MG TABLET (FP) PO SCH ×2 (06:15→13:00)
[2021-02-17] MEDS: HEPARIN NA (PORCINE) 5,000 UNITS/ML 1ML VIAL SQ SCH ×2 (06:15→13:00)
[2021-02-17 07:30] VITALS: TEMP 98.1
[2021-02-17] MEDS: SEVELAMER CARBONATE 800 MG TAB (FP) PO SCH ×2 (08:34→12:58)
[2021-02-17] MEDS ORDERED: METOPROLOL TARTRATE 50 MG TABLET (FP) PO SCH ×2 (08:48→09:09)
[2021-02-17] MEDS: amLODIPine BESYLATE 5 MG TABLET (FP) PO SCH (09:21)
[2021-02-17 09:31] LABS: BASO % 1.3 % (0-2.0); HEMATOCRIT 30.4 % (35.4-49); HEMOGLOBIN 9.9 GM/dL (11.7-16.9); LYMPH % 14.8 % (8-40); MCH 26.2 pg (25.7-33.7); MCHC 32.7 g/dl (32.0-35.9); MEAN CELL VOLUME 80.2 fl (80-96); MEAN PLT VOLUME 8.9 fl (7.5-11.1); NEUT % 70.9 % (42.8-82.8); PLATELET COUNT 294 10^3/uL (134-434); RBC 3.79 M/mm3 (4.00-5.60); RDW 14.8 % (11.9-15.9); WHITE BLOOD COUNT 5.8 K/mm3 (4.0-10.0)
[2021-02-17 09:57] LABS: ALBUMIN 2.7 g/dl (3.4-5.0); CALCIUM 8.7 mg/dL (8.5-10.1)
[2021-02-17 09:58] LABS: BLOOD UREA NITROGEN 65.7 mg/dL (7-18); MAGNESIUM 2.3 mg/dL (1.8-2.4)
[2021-02-17] MEDS ORDERED: hydrALAZINE HCL 25 MG TABLET (FP) PO SCH (10:00)
[2021-02-17 10:01] LABS: CREATININE 4.6 mg/dL (0.55-1.3)
[2021-02-17 10:02] LABS: BILIRUBIN,TOTAL 0.4 mg/dL (0.2-1); TOT PROT 6.5 g/dl (6.4-8.2)
[2021-02-17 10:10] VITALS: BP 178/85; PULSE 69
== END 2021-02-17 14:08 | disposition home or self-care (01) | DRG 699 ==
LOC: JER 20:17 → JERBED 02-13 02:01 → J5S 02-13 09:56
PROVIDERS: ADMIT Internal Medicine; ATTEND Nurse Practitioner Acute Care
DX: E10.21 Type 1 diabetes mellitus with diabetic nephropathy (principal); I12.0 Hypertensive chronic kidney disease with stage 5 chronic kidney disease or end stage renal disease; I24.8 Other forms of acute ischemic heart disease; N17.9 Acute kidney failure, unspecified; N18.5 Chronic kidney disease, stage 5; E87.70 Fluid overload, unspecified; E10.649 Type 1 diabetes mellitus with hypoglycemia without coma; E78.5 Hyperlipidemia, unspecified; Z91.14 Patient's other noncompliance with medication regimen; E83.39 Other disorders of phosphorus metabolism; Z79.4 Long term (current) use of insulin
CPT/HCPCS: 36415; 71045-TC-FY; 71250-TC; 74176-TC; 76775-TC; 80048; 80053; 81003; 82272; 82550; 82553; 82728; 82962; 83036; 83540; 83550; 83735; 84100; 84484; 85025; 85027; 85045; 86769; 87086; 93005; 93010; 93306-TC; 99291; C9803; J1644; U0003; U0005